=== PATIENT | female | born 1970 | race African-American/Black ===

== ENCOUNTER 2020-03-21 17:28 | Emergency (ER) | payer OTHER, SELFPAY ==
--- NOTE | ~2020-03-21 | CT_ITS ---
EXAMINATION: CTA BRAIN/CAROTID DATE: 03/21/2020 18:35 INDICATION: Left hand tingling. Abnormal EKG. TECHNIQUE: Computed tomographic angiography (CTA) of the head and neck was performed with 100 mL Omni paque-350 intravenous contrast. Multiplanar reconstructions and maximum intensity projection 3D-recon structions of the carotid arteries and of the intracranial arteries were created by the technologist on a separate workstation. Precontrast CT of the head was also obtained. Automated exposure control and iterative reconstruction technique were employed.The dose-length product was 1566.30 mGy-cm. COMPARISON: None. FINDINGS: Carotid arteries: There is moderate atherosclerotic plaque with 0% stenosis of both the left and right carotid bulbs re lative to normal distal artery lumen diameter (NASCET criteria). Small bilateral pulmonary nodules in cluding a 6 mm centrally cavitary nodule with mildly thickened wall at the left apex and with 4 mm no dule in the right upper lobe. 3 mm stone in the right parotid gland. Cervical soft tissues are otherw ise unremarkable. Large erosion involving the left maxillary premolar with associated periapical luce ncy. Likely positional smooth reversal of the normal cervical lordosis. Head: No acute intracranial hemorrhage, acute infarction or abnormal extra axial fluid collection. Ventricl es are normal and symmetric. No mass/mass effect. No abnormally enhancing brain lesions identified. T he orbits, paranasal sinuses and mastoid air cells are normal. Intracranial arteries There is no hemodynamically significant stenosis in the vertebral, basilar and bilateral internal car otid arteries. Vertebral arteries are codominant. There are no aneurysms identified. Both A1 and P1 segments are patent. There is also a patent left posterior communicating artery. Cerebral arterial ar borization appears symmetric. IMPRESSION: 1. Atherosclerotic plaque was 0% stenosis of the both the left and right carotid bulbs relative to no rmal distal artery lumen diameter (NASCET criteria). 2. Normal cerebral angiogram. 3. No acute intracranial process. 4. A couple small nodules in the bilateral upper lobes including a 6 mm cavitary nodule at the left a pex which is most likely infectious/inflammatory in etiology. Recommend follow-up low-dose noncontras t chest CT in 3-6 months. Reviewed, dictated and finalized at location A. IMPRESSION: 1. Atherosclerotic plaque was 0% stenosis of the both the left and right caroti d bulbs relative to normal distal artery lumen diameter (NASCET criteria). 2. Normal cerebral angiogram. 3. No acute intracranial process. 4. A couple small nodules in the bilateral upper lobes including a 6 mm cavitar y nodule at the left apex which is most likely infectious/inflammatory in etiol ogy. Recommend follow-up low-dose noncontrast chest CT in 3-6 months.
--- NOTE | 2020-03-21 17:33 | ECG_ITS ---
Measurements Intervals [place] Rate: 61 P: 61 FL: 164 QRS: 18 QRSD: 77 T: 43 QT: 410 QTc: 416 Interpretive Statements SINUS RHYTHM DELAYED PRECORDIAL R/S TRANSITION BORDERLINE ECG Electronically Signed On 03-22-2020 6:56:35 CDT by Duncan Hurtado D.O.
[2020-03-21 17:35] VITALS: BP 171/92; PULSE 77; RESP 18; TEMP 37.2; O2SAT 100
--- NOTE | 2020-03-21 17:50 | ED.GENADULT ---
HPI - General Adult General Chief complaint: Neuro Symptoms/Deficit Stated complaint: abnormal ekg Time Seen by Provider: 03/21/20 17:40 Source: patient Limitations: no limitations History of Present Illness HPI narrative: Patient is a 50 y/o female complaining numbness and weakness of left arm for last 3 day. She states that her numbness is severe. There is no alleviating or exacerbating factor. She was seen by her doctor today and directed to ED because EKG is abnormal. She has no chest pain or SOB. She has no leg weakness or difficulty with walking. Related Data Allergies Allergy/AdvReac Type Severity Reaction Status Date / Time lisinopril Allergy Unknown Swelling Verified 09/05/17 12:11 Review of Systems Constitutional: Constitutional: Denies chills, Denies fever(s), Denies headache(s) and Denies weakness Eyes: Eyes: Denies blurry vision ENT: Denies headache(s) and Denies neck pain Cardiovascular: Cardiovascular: Denies chest pain and Denies dyspnea Respiratory: Respiratory: Denies cough and Denies dyspnea Gastrointestinal: Gastrointestinal: Denies abdominal pain, Denies diarrhea, Denies nausea and Denies vomiting Genitourinary: Genitourinary: Denies hematuria and Denies dysuria Musculoskeletal: Musculoskeletal: Denies back pain and Denies neck pain Neurologic: Denies headache(s), Reports focal weakness, Reports numbness and Denies weakness PMFSH Social History Social History Gender identity (if verbalized by the patient): Female Exam Const: General: no acute distress and well developed Orientation/consciousness: oriented to person, oriented to place, oriented to time and patient oriented x3 HENMT: Head: normocephalic Ears: external ears normal General nose exam: Normal external nose present Eyes: General: appearance normal, both eyes and all related structures Conjunctivae: conjunctivae normal Neck: Neck: normal visual inspection and full ROM Chest: Chest palpation & inspection: normal inspection of the chest and no tenderness Resp: Effort & Inspection: normal respiratory effort Auscultation: clear to auscultation bilaterally Cardio: Rate: regular rate Rhythm: regular rhythm GI: GI Palp: No abdominal tenderness and Yes Soft to palpation Skin: General skin exam: normal color and turgor normal Neuro: General: oriented to person, oriented to place, oriented to time and patient oriented x3 Cranial nerves: Yes CN's II-XII intact bilaterally Cognition (Neuro): normal cognition Speech: normal speech Motor exam (neuro): 5/5 motor strength present throughout Sensory Exam: Sensory deficit (Neuro) (decreased sensation left arm) Coordination: [id number] test normal and [id number] test normal Extrem: General: normal to inspection, full ROM and no pedal edema Psych: Appearance: grossly normal Mental Status: mental status grossly normal Affect: normal affect Course Reevaluation(s) Reevaluation #1: Rechecked. Patient feels better. She states that her numbness and all other symptoms are resolved. I offered admission for observation because stroke is not completely ruled out. Patient does not want to be admitted and insisted on discharge. Date: 03/21/20 Time: 21:01 Vital Signs Vital signs: Vital Signs Temperature 37.2 C 03/21/20 17:35 Pulse Rate 77 03/21/20 17:35 Respiratory Rate 18 03/21/20 17:35 Blood Pressure 171/92 H 03/21/20 17:35 Pulse Oximetry 100 03/21/20 17:35 Temperature 37.2 C 03/21/20 17:35 Pulse Rate 63 03/21/20 21:10 Respiratory Rate 15 03/21/20 21:10 Blood Pressure 175/76 H 03/21/20 21:10 Pulse Oximetry 100 03/21/20 21:10 Medical Decision Making Vital Signs Vital Signs: Vital Signs Temperature 37.2 C 03/21/20 17:35 Pulse Rate 77 03/21/20 17:35 Respiratory Rate 18 03/21/20 17:35 Blood Pressure 171/92 H 03/21/20 17:35 Pulse Oximetry 100 03/21/20 17:35 Temperature 37.2 C 03/21/20 17:35 Pulse Rate 63 03/21
[2020-03-21 18:07] LABS: Basophils Percent Auto 0.4 % (0.2-1.2); Eosinophils Absolute Auto 0.1 K/mm3 (0-0.3); Eosinophils Percent Auto 1.2 % (0-4.4); Hematocrit 40.9 % (37.0-47.0); Hemoglobin 13.7 g/dL (12.0-15.0); Immature Granulocyte Absolute 0.02 K/mm3 (0.00-0.031); Immature Granulocyte Percent A 0.2 % (0-0.5); Lymphocytes Absolute Auto 3.38 K/mm3 (0.9-3.2); Lymphocytes Percent Auto 39.9 % (18.3-44.2); Mean Corpuscular HGB Conc 33.5 g/dl (32-36); Mean Corpuscular Hemoglobin 29.5 pg (26-34); Mean Platelet Volume 8.9 fl (7.4-10.4); Neutrophils Absolute Auto 3.9 K/mm3 (1.3-6.7); Neutrophils Percent Auto 46.3 % (45.5-73.1); Platelet Count Result 370 k/mm3 (150-375); Red Blood Count 4.65 M/mm3 (4.2-5.4); Red Cell Distribution Width 14.6 % (11.5-14.5); White Blood Count 8.5 K/mm3 (4.5-10.0)
[2020-03-21 18:18] LABS: Alanine Aminotransferase 17 U/L (4-35); Albumin Level 4.4 g/dL (3.5-5.1); Alkaline Phosphatase 63 U/L (38-126); Anion Gap 5 mmol/L (8-16); Aspartate Amino Transferase 22 U/L (14-36); Bilirubin,Total 0.4 mg/dL (0.2-1.3); Blood Urea Nitrogen 10 mg/dL (7-17); Calcium 9.3 mg/dL (8.4-10.2); Carbon Dioxide 29 mmol/L (22-30); Chloride 102 mmol/L (98-107); Estimated Glomerular Filt Rate > 60; Glucose 88 mg/dL (65-105); Potassium 4.2 mmol/L (3.4-5.0); Sodium 136 mmol/L (137-145)
[2020-03-21 18:23] LABS: Estimated Glomerular Filt Rate > 60
[2020-03-21 18:56] LABS: Add Urine Microscopic? NO; Appearance Urine Clear (Clear); Bilirubin Urine Negative (Negative); Blood Urine Negative (Negative); Color Urine Straw (Yellow); Glucose Urine UA Negative (Negative); Ketones Urine Negative (Negative); Leukocyte Esterase Ur Negative LEU/UL (Negative); Nitrate Urine Negative (Negative); Protein Urine Negative (Negative); Urobilinogen Urine Negative mg/dL (<2.0)
[2020-03-21 18:57] LABS: Specific Grav Ur 1.033 (1.001-1.035)
[2020-03-21 19:01] VITALS: BP 161/80; PULSE 63; RESP 23; O2SAT 100
--- NOTE | 2020-03-21 20:47 | PC.NURSE ---
Pt. family member requesting an update states Is there even a doctor here we have been here for like five hours. ERP notified pt. requesting update.
[2020-03-21 21:10] VITALS: BP 175/76; PULSE 63; RESP 15; O2SAT 100
== END 2020-03-21 21:10 | disposition home or self-care (01) ==
PROVIDERS: Emergency Provider Emergency Medicine; PCP Emergency Medicine
DX: R20.0 Anesthesia of skin (principal)
CPT/HCPCS: 36415; 70496; 70498; 80053; 81003; 81025; 85025; 93005; 99284; Q9967

== ENCOUNTER → 2020-07-14 09:51 | Outpatient (CLI) | payer OTHER, SELFPAY ==
--- NOTE | ~2020-07-14 | XR_ITS ---
EXAMINATION: XR chest 2V DATE: 07/14/2020 10:18 INDICATION: Tobacco use. TECHNIQUE: Frontal and lateral views of the chest were obtained. COMPARISON: None. FINDINGS: The chest demonstrates clear lungs without pneumonia, pleural effusion, or pneumothorax. Th e heart size is normal. IMPRESSION: 1. No acute cardiopulmonary disease. Reviewed, dictated and finalized at location B. SLINGER
== END ==
PROVIDERS: PCP Emergency Medicine; Visit Provider Emergency Medicine
DX: Z72.0 Tobacco use (principal)
CPT/HCPCS: 71046

== ENCOUNTER 2020-08-10 07:57 | Outpatient (CLI) | payer OTHER, SELFPAY ==
--- NOTE | ~2020-08-10 | MM_ITS ---
EXAMINATION: MM screening [place] BI w bob HISTORY: Screening mammogram TECHNIQUE: Craniocaudal and mediolateral oblique 3-D tomosynthesis images were obtained and synthetic 2-D images were generated. CAD analysis was submitted and interpreted. COMPARISON: 06/14/2017 bilateral digital screening mammogram BREAST PARENCHYMAL COMPOSITION: The breasts are heterogeneously dense, which may obscure small masses . FINDINGS: Occasional bilateral benign calcifications are again noted. There is no evidence of suspici ous mass, calcification, or architectural distortion to suggest malignancy in either breast. There rose s been no suspicious interval change. IMPRESSION: 1. No mammographic evidence of malignancy. 2. Recommend routine screening mammography in one year. BI-RADS Category 2: Benign finding(s). Reviewed, dictated and finalized at location B. TY COUNSELOR
== END 2020-08-10 07:58 | disposition home or self-care (01) ==
PROVIDERS: PCP Emergency Medicine; Visit Provider Emergency Medicine
DX: Z12.31 Encounter for screening mammogram for malignant neoplasm of breast (principal)
CPT/HCPCS: 77063; 77067

== ENCOUNTER 2021-09-25 12:51 | Outpatient (CLI) | payer OTHER, SELFPAY ==
--- NOTE | ~2021-09-25 | CT_ITS ---
EXAMINATION: CT diagnostic chest wo con DATE: 09/25/2021 13:17 INDICATION: Lung nodule follow-up TECHNIQUE: Computed tomography (CT) of the chest was performed without intravenous contrast. The dose -length product was 76.20 mGy-cm. Automated exposure control and iterative reconstruction technique w ere employed. COMPARISON: CTA brain/carotid dated 03/21/2020 FINDINGS: No thoracic lymphadenopathy. Heart size normal. No significant pleural or pericardial effus ion. Interval resolution of upper lobe nodules including cavitary 6 mm lesion in the left apex, likel y infectious/inflammatory. There are a few scattered 1-2 mm nodules, most likely benign sequela of pr evious infection. No endobronchial lesions. No pneumothorax. No acute osseous abnormality. IMPRESSION: 1. Few small scattered 1-2 mm nodules with resolution of larger nodules at the lung apices, likely be nign sequela of previous infection. Consider follow-up low dose CT chest in 12 months. Reviewed, dictated and finalized at location B. COOK IMPRESSION: 1. Few small scattered 1-2 mm nodules with resolution of larger nodules at the lung apices, likely benign sequela of previous infection. Consider follow-up lo w dose CT chest in 12 months.
== END 2021-09-25 12:52 | disposition home or self-care (01) ==
LOC: ANHIMG 12:55
PROVIDERS: PCP Emergency Medicine; Visit Provider Emergency Medicine
DX: R91.1 Solitary pulmonary nodule (principal)
CPT/HCPCS: 71250; 77063; 77067

== ENCOUNTER 2021-09-25 14:38 | Outpatient (CLI) | payer OTHER, SELFPAY ==
--- NOTE | ~2021-09-25 | MM_ITS ---
EXAMINATION: MM screening [place] BI w bob HISTORY: Screening mammogram TECHNIQUE: Craniocaudal and mediolateral oblique 3-D tomosynthesis images were obtained and synthetic 2-D images were generated. CAD analysis was submitted and interpreted. COMPARISON: 08/10/2020, 06/14/2017 bilateral screening mammogram examinations BREAST PARENCHYMAL COMPOSITION: There are scattered areas of fibroglandular density. FINDINGS: Right breast: There is no evidence of suspicious mass, calcification, or architectural dist ortion to suggest malignancy in either breast. There has been no suspicious interval change. Left breast: There is interval asymmetry in the outer left breast on craniocaudal view; diagnostic le ft mammogram and possibly left breast ultrasound examination are recommended for further evaluation. IMPRESSION: 1. Interval lateral left breast asymmetry, 2. Diagnostic left mammogram is recommended, with ultrasound if required. BI-RADS Category 0: Incomplete: Needs additional imaging evaluation. Reviewed, dictated and finalized at location A. 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
== END 2021-09-25 14:39 | disposition home or self-care (01) ==
LOC: ANHIMG 14:40
PROVIDERS: PCP Emergency Medicine; Visit Provider Emergency Medicine
DX: Z12.31 Encounter for screening mammogram for malignant neoplasm of breast (principal); R92.8 Other abnormal and inconclusive findings on diagnostic imaging of breast
CPT/HCPCS: 77063; 77067

== ENCOUNTER 2021-10-31 12:34 | Outpatient (CLI) | payer OTHER, SELFPAY ==
--- NOTE | ~2021-10-31 | MM_ITS ---
EXAMINATION: MM diagnostic [place] LT w bob HISTORY: Left breast asymmetry on screening mammogram TECHNIQUE: Additional 3-D tomosynthesis images of the left breast were performed and synthetic 2-D im ages were generated. CAD analysis was submitted and interpreted. COMPARISON: 09/25/2021, 08/10/2020, 06/14/2017 BREAST PARENCHYMAL COMPOSITION: The breasts are heterogeneously dense, which may obscure small masses . FINDINGS: There is a return to baseline fibroglandular appearance with spot compression of the left b reast in the area questioned on screening mammogram. IMPRESSION: 1. No mammographic evidence of malignancy. 2. Recommend routine screening mammography in one year. BI-RADS Category 1: Negative Reviewed, dictated and finalized at location A.
== END 2021-10-31 12:35 | disposition home or self-care (01) ==
LOC: ANHIMG 12:35
PROVIDERS: PCP Emergency Medicine; Visit Provider Emergency Medicine
DX: R92.8 Other abnormal and inconclusive findings on diagnostic imaging of breast (principal)
CPT/HCPCS: 77061; 77065; G0279

== ENCOUNTER 2024-12-22 15:28 | Outpatient (CLI) | payer BC, SELFPAY ==
--- NOTE | ~2024-12-22 | MM_ITS ---
EXAMINATION: MM screening [place] BI w bob HISTORY: Screening TECHNIQUE: Craniocaudal and mediolateral oblique 3-D tomosynthesis images were obtained and synthetic 2-D images were generated. CAD analysis was submitted and interpreted. COMPARISON: Comparison to multiple prior studies sequentially, with oldest reviewed study dated 06/04. BREAST PARENCHYMAL COMPOSITION: Not dense: There are scattered areas of fibroglandular density. FINDINGS: There is no evidence of suspicious mass, calcification, or architectural distortion to sugg est malignancy in either breast. There has been no suspicious interval change. IMPRESSION: 1. No mammographic evidence of malignancy. 2. Recommend routine screening mammography in one year. BI-RADS Category 1: Negative Reviewed, dictated and finalized at location B.
--- OUTSIDE RECORDS SUMMARY | 2024-12-22 15:35 | XMS_ITS | Clinical Summary ---
Author Organization [facility] Address [address] [place] [address] Care Team Providers Care Distance Learning Program Coordinator Name Role Phone Charan Rod MD Primary Care Provider [phone] Alan Orr MD Unavailable [phone] Rosemary Molina MD Unavailable [phone] Allergies Active Allergy Reactions Criticality Noted Date Comments Lisinopril Swelling Medium 04/08/2020 Medications clopidogreL (PLAVIX) 75 mg tablet Take 1 tablet (75 mg total) by mouth daily 06/21/2020 Active hydroCHLOROthia zide (HYDRODIURIL) 12.5 mg tablet Take 2 tablets (25 mg total) by mouth daily 06/07/2020 Active multivitamin capsule Take 1 capsule by mouth daily Active zinc 50 mg tablet Take by mouth Active amLODIPine (NORVASC) 10 mg tablet Take 1 tablet (10 mg total) by mouth daily 08/17/2020 Active aspirin 81 mg enteric coated tablet Take 1 tablet (81 mg total) by mouth daily Active cholecalciferol (VITAMIN D-3) 50,000 unit capsule Take 1 capsule (50,000 Units total) by mouth once a week Active buPROPion SR (WELLBUTRIN SR) 150 mg 12 hr tablet 12/06/2022 Active atorvastatin (LIPITOR) 40 mg tablet TAKE 1 TABLET(40 MG) BY MOUTH DAILY 30 tablet 1 02/03/2023 Active ezetimibe (ZETIA) 10 mg tablet Take 1 tablet (10 mg total) by mouth daily Active amLODIPine (NORVASC) 5 mg tablet Take 1 tablet (5 mg total) by mouth daily 08/13/2024 Active Active Problems Problem Noted Date Diagnosed Date Left arm pain 09/09/2024 Lung nodules 10/29/2021 Dyslipidemia, goal LDL below 100 07/06/2020 Ischemic cerebrovascular accident (CVA) 07/06/20 20 Uncontrolled stage 2 hypertension 07/06/2020 Encounters Date Type Department Care Team Description 11/17/2024 2:00 PM CDT Office Visit [facility] Neurology [address] [place] [phone] Demetria Cao NP Ischemic cerebrovascular accident (CVA) (HCC) (Primary Dx); Left arm pain from Last 3 Months Surgical History Surgery Date Site/Laterality Comments HYSTERECTOMY BREAST MASS EXCISION COLONOSCOPY Medical History Medical History Date Comments CVA (cerebral vascular accident) (HCC) Uncontrolled stage 2 hypertension Dyslipidemia Family History Medical History Relation Name Comments Colon cancer Father Heart failure Mother Relation Name Status Comments Father (Age 72) Mother Social History Tobacco Use Types Packs/Day Years Used Date Smoking Tobacco: Every Day Cigarettes 0.5 26.4 Started: 1998 Smokeless Tobacco: Never Tobacco Cessation:Ready to Q uit: Not Asked; Counseling Given: Not Answered Alcohol Use Standard Drinks/Week Comments Yes 0 (1 standard drink = 0.6 oz pur e alcohol) AUDIT-C Answer Date Recorded Q1: How often do you have a drink containing alc ohol? Monthly or less 12/04/2020 Average Number of Drinks Not on file 021 Q3: How often do you have si x or more drinks on one occasion? Never 12/04/2020 Comments No Sex and Gender Information Value Date Recorded Sex Assigned at Not on file Legal Sex Female 1:30 PM CDT Gender Identity Not on file Sexual Orientation Not on file Obstetrics History Last Filed Vital Signs Vital Sign Reading Time Taken Comments Blood Pressure 112/70 11/17/2024 2:04 PM CDT Pulse 67 11/17/2024 2:04 PM CDT Temperature 36.3 C (97.4 F) 12/19/2022 10:09 AM CDT Respiratory Rate 18 01/21/2023 9:32 AM CDT Oxygen Saturation 99% 11/17/2024 2:04 PM CDT Inhaled Oxygen Concentration - - Weight 79.8 kg (176 lb) 11/17/2024 2:04 PM CDT Height 157.5 cm (5' 2.01 ) 11/17/2024 2:04 PM CD T Body Mass Index 32.18 11/17/2024 2:04 PM CDT Plan of Treatment Health Maintenance Due Date Last Done Comments Breast Cancer Screening-Mammogram 1971 Colon Cancer Screening-Colonoscopy 1971 Depression Screening 1971 Hepatitis C Screening 1971 DTaP/Tdap/Td Vaccine (1 - Tdap) 1982 Hepatitis B Screening 1989 Regular Well Visit/Exam 18-64 1989 Pneumococcal vaccine <65 (1 of 2 - PCV) 1990 Influenza Vaccine (Season Ended) 2025 Zoster Vaccine Completed 07/23/2023, 05/20/2023 Insurance [facility] Care Teams Distance Learning Program Coordinator Relationship Specialty Start Date End Date Charan Rod MD PCP - General 04/08/20 Alan Orr MD Consulting Physician Hematology and Oncology 11/17/20 [place] [id number] [address] Consulting Physician Cardiology 12/19/21
--- OUTSIDE RECORDS SUMMARY | 2024-12-22 15:35 | XMS_ITS | Clinical Summary ---
Author Organization [facility] Address [address] [place] [phone] Phone Care Team Providers Care Radiation Monitor Name Role Phone Charan Rod MD Primary Care Provider [phone] Allergies Active Allergy Reactions Criticality Noted Date Comments Lisinopril 11/12/2021 Medications amLODIPine (NORVASC) 10 MG tablet Take 10 mg by mouth daily 08/17/2020 Active clopidogrel (PLAVIX) 75 MG tablet Take 75 mg by mouth daily 06/21/2020 Active Multiple Vitamin (multivitamin) capsule Take 1 capsule by mouth daily Active aspirin (ST DONNY) 81 MG EC tablet Take 81 mg by mouth 1 (one) time each day Active ezetimibe (ZETIA) 10 MG tablet Take 10 mg by mouth 1 (one) time each day Active hydroCHLOROthia zide (HYDRODIURIL) 25 MG tablet Take 1 tablet (25 mg total) by mouth 1 (one) time each day 30 tablet 11 09/16/2024 Active Active Problems Problem Noted Date Diagnosed Date Proteinuria 06/04/2023 Chronic kidney disease stage 2 11/15/2022 Vitamin D deficiency Essential hypertension Resolved Problems Problem Noted Date Diagnosed Date Resolved Date Anemia in chronic kidney disease 11/15/2022 06/04/2023 Type 2 diabetes mellitus 11/15/202208/2022 Family History Medical History Relation Comments Cancer Father Heart disease Mother Relation Status Comments Father Mother Social History Tobacco Use Types Packs/Day Years Used Date Smoking Tobacco: Some Days Smokeless Tobacco: Never Tobacco Cessation:Ready to Q uit: Not Asked; Counseling Given: Not Answered Alcohol Use Standard Drinks/Week Comments Yes 0 (1 standard drink = 0.6 oz pur e alcohol) Comments Unknown Sex and Gender Information Value Date Recorded Sex Assigned at Not on file Legal Sex Female 10:25 AM MDT Gender Identity Not on file Sexual Orientation Not on file Last Filed Vital Signs Vital Sign Reading Time Taken Comments Blood Pressure 141/68 09/16/2024 1:46 PM INSIDE SALES SUPERVISOR Pulse 60 09/16/2024 1:46 PM INSIDE SALES SUPERVISOR Temperature 36.9 C (98.4 F) 11/29/2021 4:19 PM CDT Respiratory Rate - - Oxygen Saturation - - Inhaled Oxygen Concentration - - Weight 89.4 kg (197 lb) 09/16/2024 1:46 PM INSIDE SALES SUPERVISOR Height 157.5 cm (5' 2 ) 09/16/2024 1:46 PM INSIDE SALES SUPERVISOR Body Mass Index 36.03 09/16/2024 1:46 PM INSIDE SALES SUPERVISOR Plan of Treatment Upcoming Encounters Date Type Department Care Team (Late st Contact Info) Description 02/10/2025 2:00 PM CDT Office Visit [facility] [address] [facility] [address] [place] [address] Kervin Mary MD [address] [id number] Health Maintenance Due Date Last Done Comments Pneumococcal PPSV23 Highest Risk Adult (1 of 3 - PCV13 ) 1990 Influenza Vaccine (Season Ended) 2025 Insurance [employer] Care Teams Radiation Monitor Relationship Specialty Start Date End Date Charan Rod MD PCP - General 10/17/21
--- OUTSIDE RECORDS SUMMARY | 2024-12-22 15:35 | XMS_ITS | Referral Summary ---
Author Organization [facility] Address [address] [place] [address] Care Team Providers Care Vp Of Digital Marketing Name Role Phone Charan Rod MD Primary Care Provider [phone] Alan Orr MD Unavailable [phone] Rosemary Molina MD Unavailable [phone] Encounters Date Type Department Care Team Description 11/17/2024 2:00 PM CDT Office Visit [facility] Neurology [address] [facility] [address] [place] [address] Demetria Cao NP Ischemic cerebrovascular accident (CVA) (HCC) (Primary Dx); Left arm pain from Last 3 Months Allergies Active Allergy Reactions Criticality Noted Date [...] 07/06/20 20 Uncontrolled stage 2 hypertension 07/06/2020 Social History Tobacco Use Types Packs/Day Years [...] 11/17/2024 2:04 PM CDT Plan of Treatment Not on file Insurance [facility] Member Subscriber Plan / Payer (Ef fective 2019-Present) Name:Jyoti Garcia Relation to Subscriber:Self Name:Jyoti Garcia Payer ID:[id number] (NAIC) Group ID:Not on file Type:MEDICAID RISK OTHER Address: [address] [place] [phone] [facility] Care Teams Vp Of Digital Marketing Relationship Specialty Start Date End Date Charan Rod MD PCP - General 04/08/20 Alan Orr MD Consulting Physician Hematology and Oncology 11/17/20 [place] [id number] [address] Consulting Physician Cardiology 12/19/21
== END 2024-12-22 15:29 | disposition home or self-care (01) ==
LOC: ANHIMG 15:32
PROVIDERS: PCP Emergency Medicine; Visit Provider Emergency Medicine
DX: Z12.31 Encounter for screening mammogram for malignant neoplasm of breast (principal)
CPT/HCPCS: 77063; 77067